=== PATIENT | female | born 1995 | race Two or more races ===

== ENCOUNTER 2018-07-26 02:14 | Emergency (ER) | payer SELFPAY ==
[~2018-07-26] VITALS: Ht 167.6 cm; Wt 74.0 kg
[2018-07-26 02:17] VITALS: BP 108/70
--- NOTE | 2018-07-26 02:22 | NUR ---
PT W/ GROSS ETOH INTOXICATION TONIGHT. PT 0.256 BREATHALYZER BY [facility]. PT REFUSED BY [facility] AND TRANSPORTED TO [facility]. THROUGH WHOLE EXAM PT CALLS ALL STAFF "FUCKING BITCH" AND KEEPS ROLLING OVER STATING "IM JUST GOING TO GO TO SLEEP IF YOU BITCHES ARENT GOING TO LET ME GO HOME."
== END 2018-07-26 02:37 | disposition home or self-care (01) ==
LOC: ED 02:26
DX: F10.220 Alcohol dependence with intoxication, uncomplicated (principal)
CPT/HCPCS: 99283